=== PATIENT | female | born 1980 | race Hispanic/Latino ===

== ENCOUNTER 2023-01-17 05:37 | Day surgery (SDC) | payer BC ==
[2023-01-13 11:32] LABS: BASOPHILS % (AUTO) 0.3 % (0.0-5.0); EOSINOPHILS % (AUTO) 0.6 % (0.0-8.0); HEMATOCRIT 42.1 % (36-48); LYMPHOCYTES % (AUTO) 39.5 % (21.0-51.0); MEAN CORPUSCULAR HEMOGLOBIN 31.8 pg (27.0-33.0); MEAN CORPUSCULAR HGB CONC 33.5 g/dL (32.0-36.0); MEAN CORPUSCULAR VOLUME 94.8 fL (79-99); MONOCYTES % (AUTO) 5.7 % (3.0-13.0); NEUTROPHILS % (AUTO) 53.6 % (40.0-77.0); PLATELET COUNT (AUTO) 222 K/uL (130-400); RED BLOOD CELL COUNT(AUTO) 4.44 MIL/uL (4.00-5.50); RED CELL DISTRIBUTION WIDTH 12.1 % (11.0-15.5); WHITE BLOOD COUNT (AUTO) 6.7 K/uL (4.8-10.8)
[2023-01-13 11:35] LABS: APPEARANCE,URINE CLEAR (CLEAR); BILIRUBIN,URINE NEGATIVE (NEGATIVE); COLOR,URINE COLORLESS (YELLOW); GLUCOSE, URINE (UA) NEGATIVE (NEGATIVE); KETONES,URINE NEGATIVE (NEGATIVE); LEUKOCYTE ESTERASE ,URINE 75 Leu/uL (NEGATIVE); NITRATE,URINE NEGATIVE (NEGATIVE); OCCULT BLOOD,URINE SMALL (NEGATIVE); PROTEIN,URINE NEGATIVE (NEGATIVE); UROBILINOGEN,URINE 0.2 mg/dL (0.2-1.0)
[2023-01-13 11:43] LABS: SQUAMOUS EPITHELIAL CELL,UR FEW /HPF (0-2)
[2023-01-13 11:50] VITALS: BP 119/62
[~2023-01-17] VITALS: Ht 162.6 cm; Wt 59.8 kg
[2023-01-17] VITALS (17 sets, daily range): BP systolic 100–132; BP diastolic 55–84
[2023-01-17] MEDS ORDERED: LIDOCAINE PF 100MG/5ML (2%) SYRINGE 5ML ONE (07:01)
[2023-01-17] MEDS ORDERED: DEXAMETHASONE SOD PHOSPHATE 10MG/ML 1ML VIAL ONE (07:01)
[2023-01-17] MEDS ORDERED: MIDAZOLAM HCL 1 MG/ML 2ML VIAL ONE (07:01)
[2023-01-17] MEDS ORDERED: ROCURONIUM 10MG/1ML SYR 10 MG/ML ML ONE (07:02)
[2023-01-17] MEDS ORDERED: ONDANSETRON 4MG INJ ONE ×2 (07:02→08:05)
[2023-01-17] MEDS ORDERED: PROPOFOL 10 MG/ML 20ML VIAL IV ONE (07:02)
[2023-01-17] MEDS ORDERED: NEOSTIGMINE 5MG/5ML SYR IV ONE (07:02)
[2023-01-17] MEDS ORDERED: GLYCOPYRROLATE 1 MG/5 ML SYRINGE ONE (07:02)
[2023-01-17] MEDS ORDERED: FENTANYL CITRATE PF 50 MCG/1 ML 2ML VIAL ONE (07:03)
[2023-01-17] MEDS ORDERED: KETOROLAC 30MG VIAL (30MG/ML) ONE (07:03)
[2023-01-17] MEDS ORDERED: LACTATED RINGERS 1000ML 1,000 ML IV ONE (07:05)
[2023-01-17] MEDS ORDERED: MEPERIDINE-PF 25 MG/ML SYG ONE ×2 (08:06→09:01)
== END 2023-01-17 09:50 | disposition home or self-care (01) ==
LOC: DAH 05:37
PROVIDERS: ATTEND Obstetrics & Gynecology
DX: Z30.2 Encounter for sterilization (principal); Z20.822 Contact with and (suspected) exposure to COVID-19; Z83.3 Family history of diabetes mellitus; Z80.8 Family history of malignant neoplasm of other organs or systems; Z79.01 Long term (current) use of anticoagulants; Z79.899 Other long term (current) drug therapy
CPT/HCPCS: 84703; 85025; 86850; 86900; 86901; 87088; 87426; 81001; 36415; 58670; A6260; A4663; J7030; A4351; A4606; A4215 ×2; J7120; J3010; J3490; J1100; J2710; J2001; J2250; J2704; J2405 ×2; J1885; J2175 ×2; A4649; C1769 ×2; A4452; A4223; A4222; A4221; A4600